=== PATIENT | female | born 1970 | race Caucasian/White ===

== ENCOUNTER 2023-09-20 10:29 | Emergency (ER) | payer OTHER ==
[~2023-09-20] VITALS: Ht 177.8 cm; Wt 132.5 kg
[~2023-09-20 10:29] MED LIST: BACTRIM DS TAB1 EACH PO; CALCI-CHEW500 MG PO; CIPRO500 MG PO; DEPLIN-ALGAL O1 EAC1 PO; DRISDOL50000 UNIT PO; GLUCOPHAGE500 MG PO; IBUPROFEN800 MG PO; LEVAQUIN500 MG PO; LEXAPRO20 MG PO; MUCINEX50 MG PO; MULTI VITAMIN1 EACH PO; OSTERA TABLET1 EACH PO; PEPCID40 MG PO; PREDNISONE20 MG PO; PROTONIX40 MG PO; PROZAC20 MG PO; RENA-VITE RX T1 EACH; TRANSDERM-SCOP1 EA TD; TYLENOL EXTRA500 MG PO; VITAMIN B-125000 MC1 PO; WELLBUTRIN XL150 MG PO; ZYRTEC10 M1 PO
--- OUTSIDE RECORDS SUMMARY | 2023-09-20 10:35 | XMS ---
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 E.Marquez VISIT COUNT (12 MO.) 2 [facility] TOTAL 2 NOTE: Visits indicate total known visits. ED/UCC VISIT TRACKING (12 MO.) 09/20/2023 10:29 [facility] TYPE: Emergency COMPLAINT: - ABDOMINAL PAIN 09/13/2023 06:27 [facility] TYPE: Emergency COMPLAINT: - DIARRHEA DIAGNOSES: - Allergy status to other antibiotic agents - Allergy status to penicillin - Diarrhea, unspecified - Gastro-esophageal reflux disease without esophagitis - Nicotine dependence, unspecified, uncomplicated - Other supervisor intermediates (current) drug therapy - Unspecified abdominal pain - Urinary tract infection, site not specified INPATIENT VISIT TRACKING (12 MO.) No inpatient visits to display in this time frame [email or web address]
[2023-09-20] MEDS ORDERED: DIPHENOXYLATE/ATROPINE 1 EA TAB PO ONE ×2 (12:00→15:15)
[2023-09-20] MEDS ORDERED: SODIUM CHLORIDE 0.9% 1,000 ML IV ONE (12:00)
[2023-09-20] MEDS ORDERED: ondansetron HCL 4 MG/2 ML VIAL IV ONE (12:00)
[2023-09-20 12:09] LABS: BASOPHILS 0.2 % (0-2); EOSINOPHILS 0.2 % (0-6); HEMATOCRIT 45.2 % (35.0-50.0); HEMOGLOBIN 15.2 g/dL (12.0-18.0); MCH 27.5 (27-36); MCHC 33.6 g/dl (30-36); MCV 81.9 fl (81-99); MONOCYTES 8.1 % (0-12); NEUTROPHILS 84.5 % (39-80); PLATELET COUNT 393 K/uL (140-440); RBC 5.52 M/ul (4.3-5.7); RDW 14.1 (10.5-15.0)
[2023-09-20 12:28] LABS: ALBUMIN 3.2 g/dL (3.4-5.0); ALBUMIN/GLOBULIN RATIO 0.7 (1.1-2.4); ANION GAP 9.2 (7-21); BILIRUBIN, TOTAL 0.5 ng/dL (0.2-1.0); BUN/CREATININE RATIO 12.35 (6.0-28.6); CREATININE, SERUM 0.89 mg/dL (0.55-1.02); POTASSIUM 3.2 mmol/L (3.5-5.1); PROTEIN, TOTAL 7.8 g/dL (6.4-8.2)
[2023-09-20] MEDS ORDERED: ONDANSETRON ODT8 MG PO (15:06)
[2023-09-20] MEDS ORDERED: LOMOTIL TABLET1 EACH PO (15:06)
[2023-09-20 15:44] VITALS: BP 122/76
[2023-09-21 17:42] LABS: C. DIFF TOXIN B GENE TCDB,PCR Not Detected (())
== END 2023-09-20 15:44 | disposition home or self-care (01) ==
LOC: ED 10:29
PROVIDERS: Emergency Medicine
DX: K52.9 Noninfective gastroenteritis and colitis, unspecified (principal); K21.9 Gastro-esophageal reflux disease without esophagitis; F17.200 Nicotine dependence, unspecified, uncomplicated; Z88.1 Allergy status to other antibiotic agents; Z88.0 Allergy status to penicillin; Z79.899 Other long term (current) drug therapy
CPT/HCPCS: 36415; 74177; 80053; 85025; 87493; J2405; J7030; Q9967